=== PATIENT | male | born 1980 | race Caucasian/White ===

== ENCOUNTER 2017-06-26 19:07 | Emergency (ER) | payer OTHER ==
[2017-06-26 19:15] VITALS: BP 132/70; PULSE 87; RESP 20; TEMP 98.2
[2017-06-26] MEDS ORDERED: ORPHENADRINE 30 MG/ML 2 ML VIAL IM STA (19:29)
[2017-06-26] MEDS ORDERED: methylPREDNISolone SOD SUCCI 125 MG/2 ML VIAL IM STA (19:29)
[2017-06-26] MEDS ORDERED: KETOROLAC 60 MG/2 ML VIAL IM STA (19:30)
--- NOTE | 2017-06-26 19:34 | ED ---
General Adult HPI - General Chief complaint: Back Pain/Injury Stated complaint: back pain Time Seen by Provider: 06/26/17 19:23 Source: patient, RN notes reviewed Mode of arrival: ambulatory Limitations: no limitations - History of Present Illness Initial comments: 37-year-old male presents emergency department chief complaint of back spasms. Patient states he went spasming for about a week. Patient states that this has happened to him in the past and normally gets structures and feels better. Patient states he has MS he denies any weakness she's been able to get up and get around. denies Loss by bladder function. Patient denies any saddle anesthesia. He was concerned due to his symptoms he thought that he should be evaluated. Patient denies any fever chills with this patient denies any cough cold.Patient denies any recent fever, chills, shortness of breath, chest pain, back pain, abdominal pain, nausea vomiting, numbness or tingling, dysuria or hematuria, constipation or diarrhea, headaches or visual changes, or any other current symptoms. - Related Data Home Medications Medication Instructions Recorded Confirmed Gabapentin [Neurontin] 200 mg PO BID 09/04/16 06/26/17 Previous Rx's Medication Instructions Recorded Orphenadrine [Norflex] 100 mg PO Q12H #10 tablet.er 06/26/17 Allergies Allergy/AdvReac Type Severity Reaction Status Date / Time No Known Allergies Allergy Verified 06/26/17 19:14 Review of Systems ROS Statement: Those systems with pertinent positive or pertinent negative responses have been documented in the HPI. ROS Other: All systems not noted in ROS Statement are negative. Past Medical History Additional Past Medical History / Comment(s): MULTIPLE SCLEROSIS History of Any Multi-Drug Resistant Organisms: None Reported Past Surgical History: Orthopedic Surgery Additional Past Surgical History / Comment(s): bilat KNEE SURGERY Past Psychological History: No Psychological Hx Reported Smoking Status: Current every day smoker Past Alcohol Use History: None Reported Past Drug Use History: None Reported General Exam Limitations: no limitations General appearance: alert, in no apparent distress ENT exam: Present: normal exam, mucous membranes moist Neck exam: Present: normal inspection. Absent: tenderness, meningismus, lymphadenopathy Respiratory exam: Present: normal lung sounds bilaterally. Absent: respiratory distress, wheezes, rales, rhonchi, stridor Cardiovascular Exam: Present: regular rate, normal rhythm, normal heart sounds. Absent: systolic murmur, diastolic murmur, rubs, gallop, clicks Extremities exam: Present: normal inspection, full ROM, normal capillary refill. Absent: tenderness, pedal edema, joint swelling, calf tenderness Back exam: Present: normal inspection, full ROM, tenderness (Diffusely). Absent : vertebral tenderness Neurological exam: Present: alert, oriented X3 Psychiatric exam: Present: normal affect, normal mood Skin exam: Present: warm, dry, intact, normal color. Absent: rash Course Vital Signs 06/26/17 19:13 Temperature 98.2 F Pulse Rate 87 Respiratory 20 Rate Blood Pressure 132/70 O2 Sat by Pulse 98 Oximetry Medical Decision Making - Medical Decision Making 37-year-old male presents for back pain with back spasm. This and we will start him on muscle relaxers for home. We discussed return parameters follow- up all patient's family's questions. He stated the [facility] management plan. This time they will be discharged. Disposition Clinical Impression: Spasm of back muscles Disposition: HOME SELF-CARE Condition: Stable Instructions: Muscle Spasm (ED) Additional Instructions: Please use medication as discussed. Please follow up with family doctor if symptoms have not improved over the next two days. Please return to the emergency room if your symptoms increase or worsen or for any other concerns. Prescriptions: Orphenadrine [Norflex] 100 mg PO Q12H #10 tablet.er Referrals: Andrea Mathis MD [Primary Care Provider] - 1-2 days Time of Disposition: 19:44
== END 2017-06-26 19:45 | disposition home or self-care (01) ==
LOC: EC 19:07
DX: M62.830 Muscle spasm of back (principal); G35 Multiple sclerosis; F17.200 Nicotine dependence, unspecified, uncomplicated; Z79.899 Other long term (current) drug therapy
CPT/HCPCS: 99283; 96372 ×3; J2360; J2930; J1885

== ENCOUNTER 2017-07-25 02:47 | Emergency (ER) | payer OTHER ==
[2017-07-25] MEDS ORDERED: predniSONE 50 MG TAB PO STA (03:19)
[2017-07-25] MEDS ORDERED: KETOROLAC 60 MG/2 ML VIAL IM STA (03:20)
[2017-07-25] MEDS ORDERED: CYCLOBENZAPRINE 10MG STARTER 3 TAB BTL PO STA (03:21)
[2017-07-25] MEDS ORDERED: ACET/COD 300 MG/30 MG STARTER PACK 6 TAB BTL PO STA (03:21)
--- NOTE | 2017-07-25 03:24 | ED ---
Back Pain HPI - General Chief Complaint: Back Pain/Injury Stated Complaint: Back Pain Time Seen by Provider: 07/25/17 03:04 Source: patient Limitations: no limitations - History of Present Illness Initial Comments: 37-year-old male patient presents to emergency department today for complaints of back pain. Patient states he has pain radiating from his neck all the way to his low back. Patient states that it feels like his entire back is in spasm. Patient states he has a past medical history significant for multiple sclerosis. He states this feels similar to his previous exacerbations. Patient states that he has similar symptoms to this every couple of months. States he is usually treated with steroids and it improves his symptoms greatly. He denies any recent injury. He states that when the weather gets hot is usually trigger for his MS. He denies any numbness or tingling in any of his extremities. Denies any radiation of the pain down his legs. Denies any loss of bowel or bladder control. Denies any saddle anesthesia. He denies any difficulty ambulating, or weakness. Denies any visual changes. Patient denies any recent rash, fever, chills, shortness breath, chest pain, abdominal pain, nausea, vomiting, diarrhea, constipation, dizziness, weakness, hematuria, dysuria, urinary urgency, urinary frequency, headache, or any other complaints. - Related Data Home Medications Medication Instructions Recorded Confirmed Gabapentin [Neurontin] 300 mg PO BID 09/04/16 06/26/17 Previous Rx's Medication Instructions Recorded predniSONE 650 mg PO DAILY #91 tab 07/25/17 Allergies Allergy/AdvReac Type Severity Reaction Status Date / Time No Known Allergies Allergy Verified 06/26/17 19:14 Review of Systems ROS Statement: Those systems with pertinent positive or pertinent negative responses have been documented in the HPI. ROS Other: All systems not noted in ROS Statement are negative. Past Medical History Additional Past Medical History / Comment(s): MULTIPLE SCLEROSIS History of Any Multi-Drug Resistant Organisms: None Reported Past Surgical History: Orthopedic Surgery Additional Past Surgical History / Comment(s): bilat KNEE SURGERY Past Psychological History: No Psychological Hx Reported Smoking Status: Current every day smoker Past Alcohol Use History: Rare Past Drug Use History: None Reported General Exam Limitations: no limitations General appearance: alert, other (37-year-old male is a well-developed, well- nourished adult. Appears to be in mild distress related to back pain. Vital signs upon presentation were temperature 97.8, pulse 90, respirations 18, blood pressure 111/69, pulse ox 95% on room air.) Eye exam: Present: normal appearance, PERRL, EOMI. Absent: scleral icterus, conjunctival injection, periorbital swelling ENT exam: Present: normal exam, normal oropharynx, mucous membranes moist Neck exam: Present: normal inspection. Absent: tenderness, meningismus, lymphadenopathy Respiratory exam: Present: normal lung sounds bilaterally. Absent: respiratory distress, wheezes, rales, rhonchi, stridor Cardiovascular Exam: Present: regular rate, normal rhythm, normal heart sounds. Absent: systolic murmur, diastolic murmur, rubs, gallop, clicks GI/Abdominal exam: Present: soft, normal bowel sounds. Absent: distended, tenderness, guarding, rebound, rigid Extremities exam: Present: normal inspection, full ROM, normal capillary refill , other (good strength in all 4 extremities 5/5.). Absent: tenderness, pedal edema, joint swelling, calf tenderness Back exam: Present: normal inspection. Absent: rash noted Neurological exam: Present: alert, oriented X3, CN II-XII intact Psychiatric exam: Present: normal affect, normal mood Skin exam: Present: warm, dry, intact, normal color. Absent: rash Course Vital Signs 07/25/17 07/25/17 02:53 03:46 Temperature 97.8 F 97.7 F Pulse Rate 90 73 Respiratory 18 16 Rate Blood Pressure 111/69 116/61 O2 Sat by Pulse 95 99 Oximetry Medical Decision Making - Medical Decision Making 37-year-old male patient presented for evaluation of back pain. Patient states symptoms are consistent with his previous exacerbation of his multiple sclerosis. He states he is usually treated with IV steroids which relieves his symptoms. Physical exam is unremarkable.He states he usually has is done outpatient. Did discuss the case with my attending Dr. Palma, we did review the literature which stated that oral steroids were equally as effective as IV steroids inpatients without visual symptoms or symptoms of optic neuritis. I did discuss this with the patient, he is agreeable to taking oral prednisone. He will be given an IM injection of Toradol here in the department. He'll be given a starter pack for Tylenol with codeine and Flexeril to manage symptoms until the steroids kick in. He is instructed to follow-up with his primary care physician on Wednesday for recheck. He is instructed to return here immediately if he has any new, worsening, or concerning symptoms. Patient verbalizes understanding and agrees with this plan. Disposition Clinical Impression: Multiple sclerosis exacerbation, Back pain Disposition: HOME SELF-CARE Condition: Good Instructions: Back Pain (ED), Connective Tissue Disorders (ED) Additional Instructions: Take steroids as directed. Take these with food to protect your stomach. Follow up with your primary care physician or neurologist for further evaluation. Return here immediately for any new, worsening, or concerning symptoms. Prescriptions: predniSONE 650 mg PO DAILY #91 tab Referrals: Andrea Mathis MD [Primary Care Provider] - 1-2 days Time of Disposition: 03:24
[2017-07-25 03:47] VITALS: BP 116/61; PULSE 73; RESP 16; TEMP 97.7
== END 2017-07-25 04:00 | disposition home or self-care (01) ==
LOC: EC 02:47
DX: G35 Multiple sclerosis (principal); M54.5 Low back pain; F17.200 Nicotine dependence, unspecified, uncomplicated; Z79.899 Other long term (current) drug therapy
CPT/HCPCS: 99283; 96372; J1885; J7512

== ENCOUNTER 2018-01-10 07:47 | Emergency (ER) | payer OTHER ==
[2018-01-10 08:21] LABS: Basophils % (A) 0 %; Eosinophils # (A) 0.3 k/uL (0-0.7); Eosinophils % (A) 3 %; HCT 48.9 % (39.0-53.0); Lymphocytes # (A) 2.1 k/uL (1.0-4.8); Lymphocytes % (A) 21 %; MCH 31.1 pg (25.0-35.0); MCHC 32.6 g/dL (31.0-37.0); MCV 95.3 fL (80.0-100.0); Mean Platelet Volume 7.5; Monocytes # (A) 0.8 k/uL (0-1.0); Monocytes % (A) 8 %; Neutrophils # (A) 6.5 k/uL (1.3-7.7); Neutrophils % (A) 65 %; Platelet Count 172 k/uL (150-450); RBC 5.14 m/uL (4.30-5.90); RDW 12.7 % (11.5-15.5)
[2018-01-10] MEDS ORDERED: KETOROLAC 30 MG/ML 1 ML VIAL IVP STA (08:23)
[2018-01-10] MEDS ORDERED: DIAZEPAM 5 MG/ML 2 ML INJ IVP STA (08:23)
[2018-01-10] MEDS ORDERED: methylPREDNISolone SOD SUCCI 125 MG/2 ML VIAL IV STA (08:23)
--- NOTE | 2018-01-10 08:26 | ED ---
General Adult HPI - General Chief complaint: Recheck/Abnormal Lab/Rx Stated complaint: MS FLARE Time Seen by Provider: 01/10/18 07:56 Source: patient, RN notes reviewed Mode of arrival: ambulatory Limitations: no limitations - History of Present Illness Initial comments: This a 37-year-old male presents emergency Department chief complaint of muscle spasms. Patient states that a few months he has issues with his diagnosis MS by Dr. sheffield. Patient states that he has never been admitted to the hospital but states that he starts getting more severe muscle spasms. Patient states he currently has taken Robaxin prescribed by [facility]. Patient denies any focal weakness denies any chest pain, shortness breath, dizziness. He does complain of a headache which she normally has chronic migraine headaches. Patient denies any other daily medications. Patient has no nausea vomiting diarrhea constipation no fevers or chills no neck stiffness and neck pain. - Related Data Home Medications Medication Instructions Recorded Confirmed Aspirin/Acetaminophen/Caffeine 1 tab PO Q12H PRN 01/10/18 01/10/18 [Excedrin Migraine Caplet] Methocarbamol [Robaxin] 500 mg PO BID PRN 01/10/18 01/10/18 Previous Rx's Medication Instructions Recorded Hydrocodone/Acetaminophen [[place] 1 tab PO Q6HR PRN #15 tab 01/10/18 5-325] Allergies Allergy/AdvReac Type Severity Reaction Status Date / Time No Known Allergies Allergy Verified 01/10/18 08:13 Review of Systems ROS Statement: Those systems with pertinent positive or pertinent negative responses have been documented in the HPI. ROS Other: All systems not noted in ROS Statement are negative. Past Medical History Additional Past Medical History / Comment(s): MULTIPLE SCLEROSIS History of Any Multi-Drug Resistant Organisms: None Reported Past Surgical History: Orthopedic Surgery Additional Past Surgical History / Comment(s): bilat KNEE SURGERY Past Psychological History: No Psychological Hx Reported Smoking Status: Current every day smoker Past Alcohol Use History: Rare Past Drug Use History: None Reported General Exam Limitations: no limitations General appearance: alert, in no apparent distress Head exam: Present: atraumatic, normocephalic, normal inspection Eye exam: Present: normal appearance, PERRL, EOMI. Absent: scleral icterus, conjunctival injection, periorbital swelling ENT exam: Present: normal exam, normal oropharynx, mucous membranes moist, TM's normal bilaterally Neck exam: Present: normal inspection, full ROM. Absent: tenderness, meningismus, lymphadenopathy Respiratory exam: Present: normal lung sounds bilaterally. Absent: respiratory distress, wheezes, rales, rhonchi, stridor Cardiovascular Exam: Present: regular rate, normal rhythm, normal heart sounds. Absent: systolic murmur, diastolic murmur, rubs, gallop, clicks GI/Abdominal exam: Present: soft, normal bowel sounds. Absent: distended, tenderness, guarding, rebound, rigid Extremities exam: Present: normal inspection, full ROM, normal capillary refill , other (No focal weakness). Absent: tenderness, pedal edema, joint swelling, calf tenderness Back exam: Present: full ROM. Absent: tenderness, CVA tenderness (R), CVA tenderness (L), muscle spasm, paraspinal tenderness Neurological exam: Present: alert, oriented X3, CN II-XII intact, reflexes normal. Absent: motor sensory deficit Skin exam: Present: warm, dry, intact, normal color. Absent: rash Course Vital Signs 01/10/18 07:49 Temperature 97.7 F Pulse Rate 84 Respiratory 18 Rate Blood Pressure 109/69 O2 Sat by Pulse 99 Oximetry Medical Decision Making - Medical Decision Making 37-year-old male present emergency department for muscle spasms MS issues. Patient was given medications emergency room and feels improved. Patient is advised follow-up with his neurologist. Patient states that he does not feel he needs to be admitted. He has no focal weakness he only complains of pain. - Lab Data Result diagrams: 01/10/18 08:10 01/10/18 08:10 Lab Results 01/10/18 01/10/18 Range/Units 08:10 08:10 WBC 10.0 (3.8-10.6) k/uL RBC 5.14 (4.30-5.90) m/uL Hgb 16.0 (13.0-17.5) gm/dL Hct 48.9 (39.0-53.0) % MCV 95.3 (80.0-100.0) fL MCH 31.1 (25.0-35.0) pg MCHC 32.6 (31.0-37.0) g/dL RDW 12.7 (11.5-15.5) % Plt Count 172 (150-450) k/uL Neutrophils % 65 % Lymphocytes % 21 % Monocytes % 8 % Eosinophils % 3 % Basophils % 0 % Neutrophils # 6.5 (1.3-7.7) k/uL Lymphocytes # 2.1 (1.0-4.8) k/uL Monocytes # 0.8 (0-1.0) k/uL Eosinophils # 0.3 (0-0.7) k/uL Basophils # 0.0 (0-0.2) k/uL Sodium 143 (137-145) mmol/L Potassium 4.6 (3.5-5.1) mmol/L Chloride 106 (98-107) mmol/L Carbon Dioxide 29 (22-30) mmol/L Anion Gap 8 mmol/L BUN 17 (9-20) mg/dL Creatinine 0.92 (0.66-1.25) mg/dL Est GFR (CKD-EPI)AfAm >90 (>60 ml/min/1.73 sqM) Est GFR (CKD-EPI)NonAf >90 (>60 ml/min/1.73 sqM) Glucose 88 (74-99) mg/dL Calcium 9.7 (8.4-10.2) mg/dL Magnesium 1.9 (1.6-2.3) mg/dL Total Bilirubin 1.2 (0.2-1.3) mg/dL AST 16 L (17-59) U/L ALT 29 (21-72) U/L Alkaline Phosphatase 46 (38-126) U/L Total Protein 6.6 (6.3-8.2) g/dL Albumin 4.1 (3.5-5.0) g/dL Disposition Clinical Impression: Headache, Muscle spasm Disposition: HOME SELF-CARE Condition: Stable Instructions: Muscle Spasm (ED) Additional Instructions: Please return to the Emergency Department if symptoms worsen or any other concerns. Follow-up with your neurologist. Prescriptions: Hydrocodone/Acetaminophen [[place] 5-325] 1 tab PO Q6HR PRN #15 tab PRN Reason: Pain Referrals: Andrea Mathis MD [Primary Care Provider] - 1-2 days Time of Disposition: 08:59
[2018-01-10 08:37] LABS: ALT 29 U/L (21-72); AST 16 U/L (17-59); Albumin 4.1 g/dL (3.5-5.0); Alkaline Phosphatase 46 U/L (38-126); Anion Gap 8 mmol/L; Blood Urea Nitrogen 17 mg/dL (9-20); Calcium 9.7 mg/dL (8.4-10.2); Carbon Dioxide 29 mmol/L (22-30); Chloride 106 mmol/L (98-107); Glucose 88 mg/dL (74-99); Magnesium 1.9 mg/dL (1.6-2.3); Potassium 4.6 mmol/L (3.5-5.1); Sodium 143 mmol/L (137-145); Total Bilirubin 1.2 mg/dL (0.2-1.3); Total Protein 6.6 g/dL (6.3-8.2)
[2018-01-10] MEDS ORDERED: HYDROcodone/APAP 5-325MG 1 EACH TAB PO STA (09:01)
[2018-01-10 09:14] VITALS: BP 111/65; PULSE 60; RESP 16; TEMP 97.8
== END 2018-01-10 09:13 | disposition home or self-care (01) ==
LOC: EC 07:47
DX: M62.838 Other muscle spasm (principal); R51 Headache; G35 Multiple sclerosis; F17.200 Nicotine dependence, unspecified, uncomplicated
CPT/HCPCS: 36415; 80053; 83735; 85025; 99283; 96374; 96375 ×2; J2930; J3360; J1885

== ENCOUNTER 2018-07-21 13:18 | Emergency (ER) | payer OTHER ==
[2018-07-21 15:12] LABS: Basophils # (A) 0.1 k/uL (0-0.2); Basophils % (A) 1 %; Eosinophils # (A) 0.3 k/uL (0-0.7); Eosinophils % (A) 4 %; HGB 17.1 gm/dL (13.0-17.5); Lymphocytes # (A) 1.9 k/uL (1.0-4.8); Lymphocytes % (A) 26 %; MCH 31.2 pg (25.0-35.0); MCHC 32.9 g/dL (31.0-37.0); MCV 94.9 fL (80.0-100.0); Mean Platelet Volume 7.3; Monocytes # (A) 0.6 k/uL (0-1.0); Monocytes % (A) 8 %; Neutrophils # (A) 4.5 k/uL (1.3-7.7); Neutrophils % (A) 59 %; Platelet Count 192 k/uL (150-450); RBC 5.48 m/uL (4.30-5.90); RDW 12.3 % (11.5-15.5); WBC 7.5 k/uL (3.8-10.6)
--- NOTE | 2018-07-21 15:17 | ED ---
Arrhythmia/Palpitations HPI - General Chief Complaint: Arrhythmia/Palpitations Stated Complaint: Chest heaviness Time Seen by Provider: 07/21/18 15:07 Source: patient, RN notes reviewed Mode of arrival: ambulatory Limitations: no limitations - History of Present Illness Initial Comments: This is a 37-year-old male with a necessity benign past medical history other than MS who states over last month or so is had intermittent episodes of fluttering in his chest related to his heart he states he has a watch it will clock his heart rate and a single appetite is 140-150 bpm he's had sweats with this today he had chest tightness also. He was driving his car he had palpitations chest tightness his vision became tunnel vision he totally lost his vision while he was driving. He was able stop his car without incident. Over about 2 minutes everything resolved at this time is asymptomatic he has no other complaints patient does admit to smoking about one half pack is here today no drugs or alcohol. MD Complaint: rapid heart beat, "heart racing", palpitations - Related Data Home Medications Medication Instructions Recorded Confirmed Gabapentin [Neurontin] 300 mg PO BID PRN 07/21/18 07/21/18 Gabapentin [Neurontin] 600 mg PO HS PRN 07/21/18 07/21/18 Allergies Allergy/AdvReac Type Severity Reaction Status Date / Time No Known Allergies Allergy Verified 07/21/18 15:29 Review of Systems ROS Statement: Those systems with pertinent positive or pertinent negative responses have been documented in the HPI. ROS Other: All systems not noted in ROS Statement are negative. Past Medical History Additional Past Medical History / Comment(s): MULTIPLE SCLEROSIS History of Any Multi-Drug Resistant Organisms: None Reported Past Surgical History: Orthopedic Surgery Additional Past Surgical History / Comment(s): bilat KNEE SURGERY Past Psychological History: No Psychological Hx Reported Smoking Status: Current every day smoker Past Alcohol Use History: Rare Past Drug Use History: None Reported General Exam - General Exam Comments Initial Comments: This is a well-developed well-nourished awake alert oriented 3 male Limitations: no limitations General appearance: alert, in no apparent distress Head exam: Present: atraumatic, normocephalic, normal inspection Eye exam: Present: normal appearance, PERRL, EOMI. Absent: scleral icterus, conjunctival injection, periorbital swelling ENT exam: Present: normal exam, mucous membranes moist Neck exam: Present: normal inspection. Absent: tenderness, meningismus, lymphadenopathy Respiratory exam: Present: normal lung sounds bilaterally. Absent: respiratory distress, wheezes, rales, rhonchi, stridor Cardiovascular Exam: Present: regular rate, normal rhythm, normal heart sounds. Absent: systolic murmur, diastolic murmur, rubs, gallop, clicks GI/Abdominal exam: Present: soft, normal bowel sounds. Absent: distended, tenderness, guarding, rebound, rigid Extremities exam: Present: normal inspection, full ROM, normal capillary refill. Absent: tenderness, pedal edema, joint swelling, calf tenderness Back exam: Present: normal inspection Neurological exam: Present: alert, oriented X3, CN II-XII intact Psychiatric exam: Present: normal affect, normal mood Skin exam: Present: warm, dry, intact, normal color. Absent: rash Course Vital Signs 07/21/18 07/21/18 13:19 16:00 Temperature 98.1 F Pulse Rate 94 72 Respiratory 20 18 Rate Blood Pressure 107/70 117/75 O2 Sat by Pulse 99 99 Oximetry EKG Findings - EKG Results: EKG: interpreted by DENISE, sinus rhythm (Sinus rhythm with a short VA interval the VA was well 4 QRS duration 90 QT since QTC 3:30/[address]-T wave changes.) Medical Decision Making - Medical Decision Making The patient has had no further symptoms while here. His workup thus far is unremarkable. After long discussion the patient has elected to go home he'll follow-up with Dr. epperson in the office the meantime he will take a baby aspirin every day. I did suggest outpatient stress test and Holter monitor which she will pursue. - Lab Data Result diagrams: 07/21/18 14:52 07/21/18 14:52 Lab Results 07/21/18 07/21/18 07/21/18 Range/Units 14:52 14:52 14:52 WBC 7.5 (3.8-10.6) k/uL RBC 5.48 (4.30-5.90) m/uL Hgb 17.1 (13.0-17.5) gm/dL Hct 52.0 (39.0-53.0) % MCV 94.9 (80.0-100.0) fL MCH 31.2 (25.0-35.0) pg MCHC 32.9 (31.0-37.0) g/dL RDW 12.3 (11.5-15.5) % Plt Count 192 (150-450) k/uL Neutrophils % 59 % Lymphocytes % 26 % Monocytes % 8 % Eosinophils % 4 % Basophils % 1 % Neutrophils # 4.5 (1.3-7.7) k/uL Lymphocytes # 1.9 (1.0-4.8) k/uL Monocytes # 0.6 (0-1.0) k/uL Eosinophils # 0.3 (0-0.7) k/uL Basophils # 0.1 (0-0.2) k/uL PT (9.0-12.0) sec INR (<1.2) APTT (22.0-30.0) sec D-Dimer (<0.60) mg/L FEU Sodium 142 (137-145) mmol/L Potassium 4.4 (3.5-5.1) mmol/L Chloride 106 (98-107) mmol/L Carbon Dioxide 26 (22-30) mmol/L Anion Gap 10 mmol/L BUN 12 (9-20) mg/dL Creatinine 0.96 (0.66-1.25) mg/dL Est GFR (CKD-EPI)AfAm >90 (>60 ml/min/1.73 sqM) Est GFR (CKD-EPI)NonAf >90 (>60 ml/min/1.73 sqM) Glucose 84 (74-99) mg/dL Calcium 9.6 (8.4-10.2) mg/dL Magnesium 2.0 (1.6-2.3) mg/dL Total Bilirubin 1.1 (0.2-1.3) mg/dL AST 28 (17-59) U/L ALT 37 (21-72) U/L Alkaline Phosphatase 65 (38-126) U/L Total Creatine Kinase 43 L (55-170) U/L CK-MB (CK-2) <0.2 (0.0-2.4) ng/mL CK-MB (CK-2) Rel Index Troponin I <0.012 (0.000-0.034) ng/mL Total Protein 7.2 (6.3-8.2) g/dL Albumin 4.3 (3.5-5.0) g/dL TSH (0.465-4.680) mIU/L 07/21/18 07/21/18 07/21/18 Range/Units 14:52 14:52 14:52 WBC (3.8-10.6) k/uL RBC (4.30-5.90) m/uL Hgb (13.0-17.5) gm/dL Hct (39.0-53.0) % MCV (80.0-100.0) fL MCH (25.0-35.0) pg MCHC (31.0-37.0) g/dL RDW (11.5-15.5) % Plt Count (150-450) k/uL Neutrophils % % Lymphocytes % % Monocytes % % Eosinophils % % Basophils % % Neutrophils # (1.3-7.7) k/uL Lymphocytes # (1.0-4.8) k/uL Monocytes # (0-1.0) k/uL Eosinophils # (0-0.7) k/uL Basophils # (0-0.2) k/uL PT 10.0 (9.0-12.0) sec INR 1.0 (<1.2) APTT 22.0 (22.0-30.0) sec D-Dimer 0.82 H (<0.60) mg/L FEU Sodium (137-145) mmol/L Potassium (3.5-5.1) mmol/L Chloride (98-107) mmol/L Carbon Dioxide (22-30) mmol/L Anion Gap mmol/L BUN (9-20) mg/dL Creatinine (0.66-1.25) mg/dL Est GFR (CKD-EPI)AfAm (>60 ml/min/1.73 sqM) Est GFR (CKD-EPI)NonAf (>60 ml/min/1.73 sqM) Glucose (74-99) mg/dL Calcium (8.4-10.2) mg/dL Magnesium (1.6-2.3) mg/dL Total Bilirubin (0.2-1.3) mg/dL AST (17-59) U/L ALT (21-72) U/L Alkaline Phosphatase (38-126) U/L Total Creatine Kinase (55-170) U/L CK-MB (CK-2) (0.0-2.4) ng/mL CK-MB (CK-2) Rel Index Troponin I (0.000-0.034) ng/mL Total Protein (6.3-8.2) g/dL Albumin (3.5-5.0) g/dL TSH 1.240 (0.465-4.680) mIU/L - Radiology Data Radiology results: image reviewed Interpreted by me: I did review all the imaging and reports no acute findings. Disposition Clinical Impression: Palpitations Disposition: HOME SELF-CARE Condition: Good Instructions: Heart Palpitations (ED) Additional Instructions: Follow-up with Dr. Mathis for a Holter monitor and a outpatient cardiac stress test Is patient prescribed a controlled substance at d/c from ED?: No Referrals: Andrea Mathis MD [Primary Care Provider] - 1-2 days
[2018-07-21 15:19] LABS: ALT 37 U/L (21-72); AST 28 U/L (17-59); Albumin 4.3 g/dL (3.5-5.0); Alkaline Phosphatase 65 U/L (38-126); Anion Gap 10 mmol/L; Blood Urea Nitrogen 12 mg/dL (9-20); Calcium 9.6 mg/dL (8.4-10.2); Carbon Dioxide 26 mmol/L (22-30); Chloride 106 mmol/L (98-107); Glucose 84 mg/dL (74-99); Potassium 4.4 mmol/L (3.5-5.1); Sodium 142 mmol/L (137-145); Total Bilirubin 1.1 mg/dL (0.2-1.3); Total Protein 7.2 g/dL (6.3-8.2)
[2018-07-21 15:35] LABS: Creatine Kinase 43 U/L (55-170)
--- NOTE | 2018-07-21 15:42 | XR ---
EXAMINATION TYPE: XR chest 2V DATE OF EXAM: 07/21/2018 COMPARISON: NONE HISTORY: Chest pain for one week per patient. Dysrhythmia. TECHNIQUE: Frontal and lateral views of the chest are obtained. FINDINGS: Overlying EKG leads are seen. There is no focal air space opacity, pleural effusion, or pn eumothorax seen. The cardiac silhouette size is within normal limits. The osseous structures are i ntact. IMPRESSION: No acute process identified.
[2018-07-21 15:45] LABS: Creatine Kinase MB <0.2 ng/mL (0.0-2.4); Troponin I <0.012 ng/mL (0.000-0.034)
[2018-07-21 16:11] VITALS: RESP 18
[2018-07-21 18:02] VITALS: BP 116/80; PULSE 68; TEMP 98
--- NOTE | 2018-07-22 07:03 | CT ---
EXAMINATION TYPE: CT angio chest DATE OF EXAM: 07/21/2018 COMPARISON: HISTORY: chest pain CT DLP: 244.5 mGycm CONTRAST: CT chest with contrast and 3D reconstruction with MIP imaging is performed with IV Contrast, patient injected with 70mL mL of Isovue 370. Contrast-enhanced CT of the chest was performed through the course of the pulmonary arteries with victor m g and mediastinal window settings submitted. 3D reconstruction with MIP imaging was also performed. PULMONARY ARTERIES: The pulmonary arteries and their major tributaries are patent. I do not see silas dence for sizable filling defect to suggest pulmonary embolic process. LUNGS: Mild scattered emphysematous changes noted. The lungs are clear and free of infiltrate. No silas dence for atelectasis. No pulmonary nodule or mass is detected. No pleural effusion. MEDIASTINUM: Thoracic aorta is of normal caliber,however, evaluation is limited given timing of the contrast bolus. If there is concern for thoracic aortic pathology consider DEEPALI. Correlate clinicall y . The heart is not enlarged. No evidence for mediastinal mass. No mediastinal lymph nodes greater than 1cm. HILAR STRUCTURES: No evidence for mass. No hilar lymph nodes greater than 1 cm. UPPER ABDOMEN: No significant abnormality is seen. IMPRESSION: 1. No evidence for Pulmonary embolism at this time.
== END 2018-07-21 18:09 | disposition home or self-care (01) ==
LOC: EC 13:18
DX: R00.2 Palpitations (principal); R07.89 Other chest pain; R00.0 Tachycardia, unspecified; G35 Multiple sclerosis; F17.200 Nicotine dependence, unspecified, uncomplicated
CPT/HCPCS: 36415; 71046; 71275; 80053; 82550; 82553; 83735; 84443; 84484; 85025; 85379; 85610; 85730; 93005; 99285

== ENCOUNTER → 2019-11-16 | Outpatient (CLI) | payer OTHER | END | disposition home or self-care (01) | LOC: RADMRIMAIN 12:22 | PROVIDERS: ATTEND Psychiatry & Neurology Neurology | DX: Z53.9 Procedure and treatment not carried out, unspecified reason (principal) ==

== ENCOUNTER 2021-11-24 22:11 | Emergency (ER) | payer OTHER ==
[2021-11-25] MEDS ORDERED: KETOROLAC 15 MG/ML 1 ML VIAL IVP STA (00:05)
[2021-11-25] MEDS ORDERED: ONDANSETRON 4 MG/2 ML VIAL IVP STA (00:05)
[2021-11-25] MEDS ORDERED: methylPREDNISolone SOD SUCCI 125 MG/2 ML VIAL IV STA (00:05)
[2021-11-25 01:25] LABS: Basophils % (A) 1 %; Eosinophils # (A) 0.1 k/uL (0-0.7); Eosinophils % (A) 1 %; HCT 44.6 % (39.0-53.0); HGB 14.6 gm/dL (13.0-17.5); Lymphocytes # (A) 0.9 k/uL (1.0-4.8); Lymphocytes % (A) 16 %; MCH 32.4 pg (25.0-35.0); MCHC 32.8 g/dL (31.0-37.0); MCV 98.9 fL (80.0-100.0); Mean Platelet Volume 7.7; Monocytes # (A) 0.8 k/uL (0-1.0); Monocytes % (A) 14 %; Neutrophils # (A) 3.8 k/uL (1.3-7.7); Neutrophils % (A) 66 %; Platelet Count 170 k/uL (150-450); RBC 4.51 m/uL (4.30-5.90); RDW 11.9 % (11.5-15.5); WBC 5.7 k/uL (3.8-10.6)
[2021-11-25 01:45] LABS: ALT 21 U/L (4-49); AST 23 U/L (17-59); African American GFR (CKD) >90 (>60 ml/min/1.73 sqM); Albumin 4.3 g/dL (3.5-5.0); Alkaline Phosphatase 61 U/L (38-126); Anion Gap 9 mmol/L; Blood Urea Nitrogen 11 mg/dL (9-20); C Reactive Protein <0.5 mg/dL (<1.0); Calcium 9.3 mg/dL (8.4-10.2); Carbon Dioxide 26 mmol/L (22-30); Chloride 105 mmol/L (98-107); Glucose 96 mg/dL (74-99); Non-African American GFR(CKD) >90 (>60 ml/min/1.73 sqM); Potassium 4.4 mmol/L (3.5-5.1); Sodium 140 mmol/L (137-145); Total Bilirubin 0.9 mg/dL (0.2-1.3); Total Protein 6.7 g/dL (6.3-8.2)
--- NOTE | 2021-11-25 01:57 | ED ---
Recheck HPI - General Chief Complaint: Recheck/Abnormal Lab/Rx Stated Complaint: MS flair up, Nerve pain, blurry vision Time Seen by Provider: 11/24/21 23:25 Source: patient Mode of arrival: ambulatory Limitations: no limitations - History of Present Illness Initial Comments: 41 year-old male patient presents for evaluation of headache, low back pain, leg pain. States symptoms started yesterday and worsened today. States he has had some upper respiratory congestion. Reports eye pain and blurred vision. Denies new numbness or tingling to the extremities. Denies any known fevers but states he has been chilled and nauseated. Does have a history of multiple sclerosis but has not had a flare in a long time. Not currently taking any medication for this. He is concerned he may be having another multiple sclerosis flare as his symptoms are consistent with his previous flares. Does not currently see a neurologist. Patient denies any recent rash, chest pain, abdominal pain, diarrhea, constipation, dizziness, weakness, hematuria, dysuria, urinary urgency, urinary frequency, or any other complaints. - Related Data Home Medications Medication Instructions Recorded Confirmed Gabapentin [Neurontin] 300 mg PO BID PRN 07/21/18 07/21/18 Gabapentin [Neurontin] 600 mg PO HS PRN 07/21/18 07/21/18 Previous Rx's Medication Instructions Recorded Dexamethasone 6 mg PO DAILY #9 tablet 11/25/21 Allergies Allergy/AdvReac Type Severity Reaction Status Date / Time No Known Allergies Allergy Verified 11/24/21 22:15 Review of Systems ROS Statement: Those systems with pertinent positive or pertinent negative responses have been documented in the HPI. ROS Other: All systems not noted in ROS Statement are negative. Past Medical History Additional Past Medical History / Comment(s): MULTIPLE SCLEROSIS History of Any Multi-Drug Resistant Organisms: None Reported Past Surgical History: Orthopedic Surgery Additional Past Surgical History / Comment(s): bilat KNEE SURGERY Past Psychological History: Depression Smoking Status: Current every day smoker Past Alcohol Use History: Rare Past Drug Use History: None Reported General Exam Limitations: no limitations General appearance: alert, in no apparent distress, other (This is a well- developed, well-nourished adult male in no acute distress.) Eye exam: Present: normal appearance, PERRL, EOMI. Absent: scleral icterus, conjunctival injection, nystagmus, periorbital swelling ENT exam: Present: normal exam, normal oropharynx, mucous membranes moist Respiratory exam: Present: normal lung sounds bilaterally. Absent: respiratory distress, wheezes, rales, rhonchi, stridor Cardiovascular Exam: Present: normal rhythm, tachycardia, normal heart sounds. Absent: systolic murmur, diastolic murmur, rubs, gallop, clicks GI/Abdominal exam: Present: soft, normal bowel sounds. Absent: distended, tenderness, guarding, rebound, rigid Neurological exam: Present: alert, oriented X3, CN II-XII intact Psychiatric exam: Present: normal affect, normal mood Skin exam: Present: warm, dry, intact, normal color. Absent: rash Course Vital Signs 11/24/21 11/25/21 22:13 02:32 Temperature 98 F 99 F Pulse Rate 104 H 73 Respiratory 20 15 Rate Blood Pressure 123/74 103/55 O2 Sat by Pulse 98 99 Oximetry Medical Decision Making - Medical Decision Making 41 year-old male patient presents to the emergency department for evaluation of lower back and leg pain. Also reported headache, eye pain, and nausea. His ago examination is unremarkable. Is neurologically intact with no focal deficits. Does have history of multiple sclerosis but has not had a flare for quite some time. Labs are drawn and mostly were unremarkable. He did test positive for COVID-19. His symptoms do seem consistent with colitis also treat for this with dexamethasone. Given pain medication. Is instructed to follow-up with his primary care physician neurologist for reevaluation. Return parameters were discussed in detail. He verbalizes understanding and agrees with this plan. My attending is Dr. Palma. - Lab Data Result diagrams: 11/25/21 00:46 11/25/21 00:46 Lab Results 11/25/21 11/25/21 11/25/21 Range/Units 00:46 00:46 00:46 WBC 5.7 (3.8-10.6) k/uL RBC 4.51 (4.30-5.90) m/uL Hgb 14.6 (13.0-17.5) gm/dL Hct 44.6 (39.0-53.0) % MCV 98.9 (80.0-100.0) fL MCH 32.4 (25.0-35.0) pg MCHC 32.8 (31.0-37.0) g/dL RDW 11.9 (11.5-15.5) % Plt Count 170 (150-450) k/uL MPV 7.7 Neutrophils % 66 % Lymphocytes % 16 % Monocytes % 14 % Eosinophils % 1 % Basophils % 1 % Neutrophils # 3.8 (1.3-7.7) k/uL Lymphocytes # 0.9 L (1.0-4.8) k/uL Monocytes # 0.8 (0-1.0) k/uL Eosinophils # 0.1 (0-0.7) k/uL Basophils # 0.0 (0-0.2) k/uL Sodium 140 (137-145) mmol/L Potassium 4.4 (3.5-5.1) mmol/L Chloride 105 (98-107) mmol/L Carbon Dioxide 26 (22-30) mmol/L Anion Gap 9 mmol/L BUN 11 (9-20) mg/dL Creatinine 0.95 (0.66-1.25) mg/dL Est GFR (CKD-EPI)AfAm >90 (>60 ml/min/1.73 sqM) Est GFR (CKD-EPI)NonAf >90 (>60 ml/min/1.73 sqM) Glucose 96 (74-99) mg/dL Calcium 9.3 (8.4-10.2) mg/dL Total Bilirubin 0.9 (0.2-1.3) mg/dL AST 23 (17-59) U/L ALT 21 (4-49) U/L Alkaline Phosphatase 61 (38-126) U/L C-Reactive Protein <0.5 (<1.0) mg/dL Total Protein 6.7 (6.3-8.2) g/dL Albumin 4.3 (3.5-5.0) g/dL Urine Color Yellow Urine Appearance Turbid (Clear) Urine pH 7.5 (5.0-8.0) Ur Specific Thomas 1.026 (1.001-1.035) Urine Protein Trace H (Negative) Urine Glucose (UA) Negative (Negative) Urine Ketones 2+ H (Negative) Urine Blood Negative (Negative) Urine Nitrite Negative (Negative) Urine Bilirubin Negative (Negative) Urine Urobilinogen 3.0 (<2.0) mg/dL Ur Leukocyte Esterase Negative (Negative) Urine RBC 2 (0-5) /hpf Urine WBC 1 (0-5) /hpf Ur Squamous Epith Cells 1 (0-4) /hpf Amorphous Sediment Rare H (None) /hpf Urine Mucus Rare H (None) /hpf Coronavirus (PCR) (Not Detectd) 11/25/21 Range/Units 00:46 WBC (3.8-10.6) k/uL RBC (4.30-5.90) m/uL Hgb (13.0-17.5) gm/dL Hct (39.0-53.0) % MCV (80.0-100.0) fL MCH (25.0-35.0) pg MCHC (31.0-37.0) g/dL RDW (11.5-15.5) % Plt Count (150-450) k/uL MPV Neutrophils % % Lymphocytes % % Monocytes % % Eosinophils % % Basophils % % Neutrophils # (1.3-7.7) k/uL Lymphocytes # (1.0-4.8) k/uL Monocytes # (0-1.0) k/uL Eosinophils # (0-0.7) k/uL Basophils # (0-0.2) k/uL Sodium (137-145) mmol/L Potassium (3.5-5.1) mmol/L Chloride (98-107) mmol/L Carbon Dioxide (22-30) mmol/L Anion Gap mmol/L BUN (9-20) mg/dL Creatinine (0.66-1.25) mg/dL Est GFR (CKD-EPI)AfAm (>60 ml/min/1.73 sqM) Est GFR (CKD-EPI)NonAf (>60 ml/min/1.73 sqM) Glucose (74-99) mg/dL Calcium (8.4-10.2) mg/dL Total Bilirubin (0.2-1.3) mg/dL AST (17-59) U/L ALT (4-49) U/L Alkaline Phosphatase (38-126) U/L C-Reactive Protein (<1.0) mg/dL Total Protein (6.3-8.2) g/dL Albumin (3.5-5.0) g/dL Urine Color Urine Appearance (Clear) Urine pH (5.0-8.0) Ur Specific Thomas (1.001-1.035) Urine Protein (Negative) Urine Glucose (UA) (Negative) Urine Ketones (Negative) Urine Blood (Negative) Urine Nitrite (Negative) Urine Bilirubin (Negative) Urine Urobilinogen (<2.0) mg/dL Ur Leukocyte Esterase (Negative) Urine RBC (0-5) /hpf Urine WBC (0-5) /hpf Ur Squamous Epith Cells (0-4) /hpf Amorphous Sediment (None) /hpf Urine Mucus (None) /hpf Coronavirus (PCR) Detected A (Not Detectd) Disposition Clinical Impression: COVID-19 Disposition: HOME SELF-CARE Condition: Good Instructions (If sedation given, give patient instructions): Coronavirus Disease 2019 (COVID-19) Additional Instructions: Tips to help you feel better: -Maintain adequate fluid intake - especially water. -Rest, you are healing your body will require extra sleep. -Eat even if you do not feel like it - broth, jello, toast are fine if you cannot eat full meals. -Take tylenol and motrin alternating (if you have no allergies or have not been instructed to avoid these medications) to help with body aches and fevers. -Obtain over the counter vitamin C, zinc, and vitamin D3. -Take medications as prescribed. Follow-up with your primary care physician for recheck in 1-2 days. Return for any new, worsening, or concerning symptoms. Prescriptions: Dexamethasone 6 mg PO DAILY #9 tablet Is patient prescribed a controlled substance at d/c from ED?: No Referrals: Andrea Mathis MD [Primary Care Provider] - 1-2 days Time of Disposition: 03:09
[2021-11-25 02:00] LABS: Amorphous Sediment,Urine Rare /hpf; Appearance,Urine Turbid (Clear); Bilirubin,Urine Negative (Negative); Blood,Urine Negative (Negative); Color,Urine Yellow; Glucose,Urine (UA) Negative (Negative); Ketones,Urine 2+ (Negative); Leukocyte Esterase,Urine Negative (Negative); Mucus,Urine Rare /hpf; Nitrite,Urine Negative (Negative); PH, Urine 7.5 (5.0-8.0); Protein,Urine Trace (Negative); RBC,Urine 2 /hpf (0-5); Specific Gravity,Urine 1.026 (1.001-1.035); Squamous Epithelial Cell,Urine 1 /hpf (0-4); WBC,Urine 1 /hpf (0-5)
[2021-11-25 02:32] VITALS: BP 103/55; PULSE 73; RESP 15; TEMP 99
[2021-11-25] MEDS ORDERED: ACET/COD 300 MG/30 MG STARTER PACK 6 TAB BTL PO STA (03:09)
[2021-11-25 03:22] LABS: Erythrocyte Sedimentation Rate 2 mm/hr (0-15)
== END 2021-11-25 03:39 | disposition home or self-care (01) ==
LOC: EC 22:11
DX: U07.1 COVID-19 (principal); F17.200 Nicotine dependence, unspecified, uncomplicated; Z79.899 Other long term (current) drug therapy
CPT/HCPCS: 36415; 80053; 85652; 85025; 86140; 81001; 87635; 99284; 96374; 96375 ×2; J2930; J2405; J1885

== ENCOUNTER 2022-04-07 19:37 | Emergency (ER) | payer OTHER ==
[2022-04-07 19:47] VITALS: BP 102/68; PULSE 68; RESP 16; TEMP 98.1
[2022-04-07] MEDS ORDERED: ORPHENADRINE 30 MG/ML 2 ML VIAL IM STA (22:07)
[2022-04-07] MEDS ORDERED: KETOROLAC 15 MG/ML 1 ML VIAL IM STA (22:07)
[2022-04-07] MEDS ORDERED: predniSONE 50 MG TAB PO STA (22:07)
[2022-04-07] MEDS ORDERED: CYCLOBENZAPRINE 10MG STARTER 3 TAB BTL PO STA (22:17)
--- NOTE | 2022-04-07 22:41 | ED ---
General Adult HPI - General Chief complaint: Back Pain/Injury Stated complaint: Back pain Time Seen by Provider: 04/07/22 21:43 Source: patient, RN notes reviewed Mode of arrival: ambulatory Limitations: no limitations - History of Present Illness Initial comments: 41-year-old male presents to the emergency department for evaluation of thoracic back pain that has been worsening over the course of the past week. 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 Patient states he took Tylenol prior to arrival with minimal improvement. He denies any injury, trauma, or fall. No complaints of weakness in the upper extremities. - Related Data Home Medications Medication Instructions Recorded Confirmed Acetaminophen Tab [Tylenol Tab] 1,000 mg PO Q6H PRN 04/07/22 04/07/22 Ibuprofen [Advil] 400 mg PO Q6H PRN 04/07/22 04/07/22 Previous Rx's Medication Instructions Recorded Cyclobenzaprine [Flexeril] 10 mg PO TID PRN #15 tab 04/07/22 Ibuprofen [Motrin] 600 mg PO Q8HR PRN #20 tab 04/07/22 predniSONE 50 mg PO DAILY #4 tab 04/07/22 Allergies Allergy/AdvReac Type Severity Reaction Status Date / Time No Known Allergies Allergy Verified 04/07/22 22:35 Review of Systems ROS Statement: Those systems with pertinent positive or pertinent negative responses have been documented in the HPI. ROS Other: All systems not noted in ROS Statement are negative. Past Medical History Additional Past Medical History / Comment(s): MULTIPLE SCLEROSIS History of Any Multi-Drug Resistant Organisms: None Reported Past Surgical History: Orthopedic Surgery Additional Past Surgical History / Comment(s): bilat KNEE SURGERY Past Psychological History: Depression Smoking Status: Current every day smoker Past Alcohol Use History: Rare Past Drug Use History: Marijuana General Exam Limitations: no limitations (Well-developed, well-nourished male in no acute distress. Initial temperature 98.1, pulse 68, respirations 16, blood pressure 102/68, pulse ox 98% on room air.) General appearance: alert, in no apparent distress Head exam: Present: atraumatic, normocephalic, normal inspection Neck exam: Present: normal inspection, full ROM. Absent: tenderness, meningismus Respiratory exam: Present: normal lung sounds bilaterally. Absent: respiratory distress, wheezes, rales, rhonchi, stridor Cardiovascular Exam: Present: regular rate, normal rhythm, normal heart sounds. Absent: systolic murmur, diastolic murmur, rubs, gallop, clicks GI/Abdominal exam: Present: soft, normal bowel sounds. Absent: distended, tenderness, guarding, rebound, rigid Back exam: Present: muscle spasm (muscle spasms surrounding thoracic region), paraspinal tenderness (lower thoracic back discomfort with paraspinal discomfort with movement of extremities). Absent: vertebral tenderness Expanded Back exam: Absent: saddle anesthesia Back exam: Negative Straight Leg Raising: Left, Right Neurological exam: Present: alert, oriented X3, CN II-XII intact Psychiatric exam: Present: normal affect, normal mood Skin exam: Present: warm, dry, intact, normal color. Absent: rash Course Vital Signs 04/07/22 19:44 Temperature 98.1 F Pulse Rate 68 Respiratory 16 Rate Blood Pressure 102/68 O2 Sat by Pulse 98 Oximetry Medical Decision Making - Medical Decision Making 41-year-old male with a past medical history of MS presents to the emergency department for evaluation of thoracic back pain. Upon exam, patient is well- appearing and in no acute distress. He is able to move freely with no weakness in his extremities. 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 He denies any trauma or injury. He was given Toradol and prednisone while present in the emergency department. Prescribed a muscle relaxer to take at home. Instructed to follow up with his PCP for recheck by the end of the week. Return parameters discussed in detail. Patient verbalizes understanding and agrees with this plan. Attending: Anushka. Disposition Clinical Impression: Thoracic back pain Disposition: HOME SELF-CARE Condition: Stable Instructions (If sedation given, give patient instructions): Back Pain (ED) Additional Instructions: Gentle range of motion exercises to maintain mobility. Rest as needed. May take Motrin for discomfort. Flexeril for muscle spasms. Avoid excess sugar intake while taking prednisone. May apply heat or ice for no more than 20 minutes per hour. Follow-up with your PCP for a recheck if pain persists. Return to the emergency department with any new, worsening, or concerning symptoms. Prescriptions: Cyclobenzaprine [Flexeril] 10 mg PO TID PRN #15 tab PRN Reason: Muscle Spasm Ibuprofen [Motrin] 600 mg PO Q8HR PRN #20 tab PRN Reason: Pain predniSONE 50 mg PO DAILY #4 tab Is patient prescribed a controlled substance at d/c from ED?: No Referrals: Andrea Mathis MD [Primary Care Provider] - 1-2 days Time of Disposition: 22:41
== END 2022-04-07 22:50 | disposition home or self-care (01) ==
LOC: EC 19:37
DX: M54.6 Pain in thoracic spine (principal); F32.A Depression, unspecified; F17.200 Nicotine dependence, unspecified, uncomplicated; Z72.89 Other problems related to lifestyle; F12.90 Cannabis use, unspecified, uncomplicated; X50.0XXA Overexertion from strenuous movement or load, initial encounter; Y99.0 Civilian activity done for income or pay; Y92.89 Other specified places as the place of occurrence of the external cause
CPT/HCPCS: 99283; 96372; J1885; J7512